=== PATIENT | male | born 1935 | race Two or more races ===

== ENCOUNTER → 2016-12-21 | Outpatient (REF) | payer MEDICARE, BC ==
[~2016-12-21] MED LIST: /TAMS4CA PO; ACET650T12 PO; ALDA25TA2 PO; AUGM875T27 PO; CLOB0.0548 TOP; COLA50CA3 PO; CYCL10TA PO; FLEXERAL PO; FLOM5CAP PO; LEVA500T PO; NADO20TA PO; NADO20TA2 PO; PRIL20CA9 PO; PRIL20TA2 PO; PROS5TAB PO; SPIR25TA2 PO
== END ==
LOC: M SMT 13:16
PROVIDERS: ATTEND Nurse Practitioner Family
DX: N39.0 Urinary tract infection, site not specified (principal)

== ENCOUNTER → 2016-12-28 | Outpatient (CLI) | payer MEDICARE ==
[~2016-12-28] MED LIST changes: -AUGM875T27 PO; +AUGM875T28 PO; +KEFL500C17 PO; +LEVA1TAB2 PO; -LEVA500T PO
--- NOTE | 2016-12-28 21:00 | REP ---
CT ABDOMEN AND PELVIS WITHOUT IV CONTRAST: 12/28/2016. Clinical history: Recurrent UTI. Comparison: 04/02/[address] Instrument [employer] film shows pedicle screws, arch bars and fixation screws into the bilateral iliac crest and sacral ala. The patient has had an ORIF of the left hip intertrochanteric fracture with intramedullary pierce and a threaded femoral nail. Technique. Noncontrast images with coronal and sagittal reconstructions performed, all with orthopedic metal artifact reduction algorithm. CT abdomen: The lung bases were clear. The heart is not enlarged. There is no pericardial thickening or effusion. There is atherosclerotic calcification distal thoracic aorta and abdominal aorta to the bifurcation. No aneurysm. The liver has lobulated contours, but is not enlarged and this is consistent with chronic liver disease. Spleen is not enlarged. It has multiple calcifications from old granulomatous disease. Clips from prior cholecystectomy are noted. Stomach shows no hiatal hernia and is collapsed. Pancreas shows some mild atrophy at body and tail, but no mass, adenopathy or adjacent fluid collection. Adrenal glands grossly intact. Kidneys show exophytic cyst interpolar region posteriorly on the left with some minor stranding perihilar regions. No hydronephrosis, stone or mass. The aorta has atherosclerotic calcification without aneurysm. No periaortic or other retroperitoneal pathologic sized lymphadenopathy. No mesenteric edema or adenopathy. Small bowel loops grossly intact. Colon shows stool and gas throughout without signs of colitis or diverticulitis. There is no perforation or free air in the abdomen and pelvis on any of the CT slices. There is no ventral hernia. Multiple pedicle screws and arch bars are again seen and appearance of the spine is unchanged in alignment with no hardware failure identified. CT pelvis: The bones are demineralized. The sacral ala and SI joints have excessive degenerative changes without acute fracture. There has been an ORIF of the left hip with intramedullary pierce and threaded femoral nail. Extensive heterotopic bone and healing fracture noted. Pubic rami, symphysis pubis were intact. Femoral heads are intact with degenerative changes on the right, with rim osteophytes and some joint space narrowing of both hip joint spaces. The small bowel loops were unremarkable. There was no dilated ureter or ureteral stone. Bladder well filled and without stone or mass. Distal left colonic and sigmoid diverticulosis without diverticulitis. Small bowel loops intact. No ventral or inguinal hernia nor pathologic inguinal adenopathy. Impression: 1. Status post ORIF intertrochanteric fracture of the left hip with threaded femoral nail and intramedullary pierce. 2. Extensive posterior spinal fusion with pedicle screws and arch bars throughout the lower thoracic and entire lumbar spine. 3. No acute fracture identified and there are changes of chronic liver disease with a small lobulated liver contour and no hepatomegaly or splenomegaly. 4. Atherosclerotic calcification of the aorta and branches without aneurysm. Small bowel loops and colon grossly intact. Nothing acute. Signed by Johnny Butler MD 12/29/2016 07:34 P
== END ==
LOC: M RAD 16:45 → EEVIPCON 17:30
PROVIDERS: ATTEND Nurse Practitioner Family
DX: N39.0 Urinary tract infection, site not specified (principal)

== ENCOUNTER → 2017-01-09 | Outpatient (REF) | payer MEDICARE | LOC: M SMT 17:06 | PROVIDERS: ATTEND Urology | DX: N39.0 Urinary tract infection, site not specified (principal) ==

== ENCOUNTER → 2017-01-30 | Outpatient (REF) | payer MEDICARE | LOC: M SMT 16:51 | PROVIDERS: ATTEND Urology | DX: N39.0 Urinary tract infection, site not specified (principal) ==

== ENCOUNTER 2017-02-17 09:54 | Emergency (ER) | payer MEDICARE ==
[~2017-02-17] VITALS: Ht 172.7 cm; Wt 74.1 kg
[~2017-02-17 09:54] MED LIST changes: -KEFL500C17 PO
[2017-02-17] MEDS ORDERED: NADO20TA PO (10:08)
[2017-02-17] MEDS ORDERED: TETANUS/DIPHTHERIA TOX ADSORB ADULT 0.5ML SYR/VIAL (90714) IM ONE (10:15)
[2017-02-17] MEDS ORDERED: KEFL500C17 PO (10:48)
[2017-02-17] MEDS ORDERED: LIDOCAINE 2% MDV 20 ML VIAL As Ordered ONE (10:57)
--- NOTE | 2017-02-17 11:02 | REP ---
Right forearm two views: There is no fracture or dislocation. 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 Impression Essentially negative right forearm except for triangular fibrocartilage calcifications. Signed by Clifton Boudreaux MD 02/17/2017 10:53 A
[2017-02-17 11:40] VITALS: BP 139/92
== END 2017-02-17 11:41 | disposition home or self-care (01) ==
LOC: M ED 09:54 → EDBD 09:54 → M ED 11:41
DX: S51.811A Laceration without foreign body of right forearm, initial encounter (principal); W10.9XXA Fall (on) (from) unspecified stairs and steps, initial encounter; Y92.019 Unspecified place in single-family (private) house as the place of occurrence of the external cause; Y93.01 Activity, walking, marching and hiking; Y99.8 Other external cause status; M21.379 Foot drop, unspecified foot; K74.60 Unspecified cirrhosis of liver; N40.0 Benign prostatic hyperplasia without lower urinary tract symptoms; F17.210 Nicotine dependence, cigarettes, uncomplicated; Z79.899 Other long term (current) drug therapy; Z91.018 Allergy to other foods

== ENCOUNTER → 2017-02-18 | Outpatient (REF) | payer MEDICARE ==
[~2017-02-18] MED LIST changes: +KEFL500C17 PO
== END ==
LOC: M SMT 17:34
PROVIDERS: ATTEND Nurse Practitioner Family
DX: N39.0 Urinary tract infection, site not specified (principal)

== ENCOUNTER 2017-02-26 10:12 | Emergency (ER) | payer MEDICARE ==
[~2017-02-26] VITALS: Ht 172.7 cm; Wt 73.6 kg
[2017-02-26 11:14] VITALS: BP 142/81
== END 2017-02-26 11:20 | disposition home or self-care (01) ==
LOC: M ED 10:12
DX: Z48.02 Encounter for removal of sutures (principal); K70.30 Alcoholic cirrhosis of liver without ascites; N40.0 Benign prostatic hyperplasia without lower urinary tract symptoms; G98.8 Other disorders of nervous system; M43.20 Fusion of spine, site unspecified; M54.9 Dorsalgia, unspecified; Z79.899 Other long term (current) drug therapy; Z91.018 Allergy to other foods

== ENCOUNTER → 2017-03-22 | Outpatient (REF) | payer MEDICARE | LOC: M SMT 16:45 | PROVIDERS: ATTEND Urology | DX: N39.0 Urinary tract infection, site not specified (principal) ==

== ENCOUNTER → 2017-04-23 | Outpatient (REF) | payer MEDICARE | LOC: M SMT 12:43 | PROVIDERS: ATTEND Urology | DX: N39.0 Urinary tract infection, site not specified (principal) ==

== ENCOUNTER → 2017-05-01 | Outpatient (REF) | payer MEDICARE | LOC: M SMT 12:43 | PROVIDERS: ATTEND Urology | DX: N39.0 Urinary tract infection, site not specified (principal) ==

== ENCOUNTER → 2018-01-07 | Outpatient (CLI) | payer MEDICARE ==
[2018-01-07 11:16] LABS: HEMATOCRIT 46.2 % (42.0-52.0); HEMOGLOBIN 15.9 g/dl (13.5-17.5); MEAN CORPUSCULAR HEMOGLOBIN 30.9 pg (27.0-33.0); MEAN CORPUSCULAR HGB CONC 34.4 g/dl (32.0-36.5); MEAN CORPUSCULAR VOLUME 89.9 fl (80.0-96.0); PLATELET COUNT, AUTOMATED 200 10^3/uL (150-450); RED BLOOD COUNT 5.14 10^6/uL (4.30-6.10); RED CELL DISTRIBUTION WIDTH 13.3 % (11.5-14.5); WHITE BLOOD COUNT 9.8 10^3/uL (4.0-10.0)
[2018-01-07 11:22] LABS: INR 0.96; PROTHROMBIN TIME 12.9 SECONDS (12.1-14.4)
[2018-01-07 11:36] LABS: ALBUMIN 3.4 GM/DL (3.2-5.2); ALBUMIN/GLOBULIN RATIO 1.06 (1.00-1.93); ALKALINE PHOSPHATASE 72 U/L (45-117); ALT/SGPT 22 U/L (12-78); ANION GAP 8 MEQ/L (8-16); AST/SGOT 19 U/L (7-37); BILIRUBIN,TOTAL 0.6 MG/DL (0.2-1.0); BLOOD UREA NITROGEN 22 MG/DL (7-18); CALCIUM LEVEL 8.8 MG/DL (8.8-10.2); CARBON DIOXIDE LEVEL 27 MEQ/L (21-32); CHLORIDE LEVEL 105 MEQ/L (98-107); CREATININE FOR GFR 1.61 MG/DL (0.70-1.30); GLOMERULAR FILTRATION RATE 43.7 (>35); GLUCOSE, FASTING 161 MG/DL (70-100); POTASSIUM SERUM 4.8 MEQ/L (3.5-5.1); SODIUM LEVEL 140 MEQ/L (136-145); TOTAL PROTEIN 6.6 GM/DL (6.4-8.2)
[2018-01-07 11:40] LABS: ERYTHROCYTE SEDIMENTATION RATE 3 mm/hr (0-20)
== END ==
LOC: M LAB 10:28
DX: Z01.818 Encounter for other preprocedural examination (principal); M17.11 Unilateral primary osteoarthritis, right knee; R94.31 Abnormal electrocardiogram [ECG] [EKG]
CPT/HCPCS: 71046

== ENCOUNTER 2018-01-20 07:35 | Inpatient (IN) | payer MEDICARE ==
[2018-01-20] MEDS ORDERED: LIDOCAINE 1% MDV 20ML VIAL SQ (07:45)
[2018-01-20] MEDS ORDERED: ceFAZolin 2 GM/D5W 50 ML IV BAG (J0690 PER 500MG) As Ordered (08:36)
[2018-01-20] MEDS: LR 1,000 ML IV ×3 (09:10→13:00)
[2018-01-20] MEDS ORDERED: fentaNYL 100 MCG/2 ML INJECTION (J3010) As Ordered ×2 (09:41→11:17)
[2018-01-20] MEDS ORDERED: MIDAZOLAM INJ 2 MG/2 ML VIAL (J2250) As Ordered (09:41)
[2018-01-20] MEDS: fentaNYL 100 MCG/2 ML INJECTION (J3010) IV (10:19)
[2018-01-20] MEDS: MIDAZOLAM INJ 2 MG/2 ML VIAL (J2250) IV (10:20)
[2018-01-20] MEDS ORDERED: PROPOFOL 200 MG/20 ML VIAL As Ordered ×2 (10:34→11:17)
[2018-01-20] MEDS ORDERED: LIDOCAINE 2% INJ 100 MG/5 ML SDV (FOR ANES.) As Ordered (10:34)
[2018-01-20] MEDS ORDERED: ROCURONIUM BROMIDE 50 MG/5 ML VIAL As Ordered ×2 (10:34→11:17)
[2018-01-20] MEDS ORDERED: dexameTHASONE 4 MG/ML 1ML VIAL (J1100) As Ordered (11:17)
[2018-01-20] MEDS ORDERED: ONDANSETRON 4MG/2ML VIAL (J2405) As Ordered (11:17)
[2018-01-20] MEDS ORDERED: GLYCOPYRROLATE INJ 0.2 MG/ML 2 ML VIAL As Ordered ×3 (11:19→11:33)
[2018-01-20] MEDS: TRANEXAMIC ACID 100 MG/ML 10ML VIAL As Ordered (11:21)
[2018-01-20] MEDS: ceFAZolin 1GM INJ (J0690 PER 500MG) As Ordered (11:21)
[2018-01-20] MEDS: EPINEPHrine INJ 1 MG/ML 1ML AMP As Ordered (11:22)
[2018-01-20] MEDS ORDERED: PHENYLephrine HCL 500 MCG/5 ML (100MCG/ML) SYRINGE (J2370) As Ordered (11:28)
[2018-01-20] MEDS ORDERED: ePHEDrine SULFATE 25 MG/5 ML(5MG/ML) SYRINGE As Ordered (11:28)
[2018-01-20] MEDS ORDERED: NEOSTIGMINE 10 MG/10 ML VIAL (J2710) As Ordered (11:33)
[2018-01-20] MEDS: BUPIVACAINE LIPOSOME/PF 1.3% 20 ML VIAL (13.3MG/ML)(EXPAREL) As Ordered (12:07)
[2018-01-20] MEDS ORDERED: MORPHINE 1MG/ML IN 0.9% NACL 100ML IV BAG As Ordered (12:33)
[2018-01-20] MEDS ORDERED: FLEET ENEMA PR (12:45)
[2018-01-20] MEDS: MORPHINE 1MG/ML IN 0.9% NACL 100ML IV BAG IV (12:55)
[2018-01-20] MEDS ORDERED: fentaNYL 100 MCG/2 ML INJECTION (J3010) IV (13:00)
[2018-01-20] MEDS ORDERED: EPIDURAL/PCA KEYS XX (13:00)
[2018-01-20] MEDS ORDERED: diphenhydrAMINE INJ 50MG/ML VIAL (J1200) IV (13:00)
[2018-01-20] MEDS ORDERED: ONDANSETRON 4MG/2ML VIAL (J2405) IV ×2 (13:00)
[2018-01-20] MEDS ORDERED: HYDROMORPHONE HCL 0.5 MG/ 0.5 ML SYRINGE (J1170 PER 1) IV (13:00)
[2018-01-20] MEDS ORDERED: NALBUPHINE HCL 10 MG/ML AMP (J2300) IV (13:00)
[2018-01-20] MEDS ORDERED: NALOXONE INJ 0.4 MG/1 ML VIAL (J2310) IV (13:00)
[2018-01-20] MEDS ORDERED: PERCOCET 5MG/325MG TAB PO (13:00)
[2018-01-20] MEDS ORDERED: ROPIvacaine 0.5% 30 ML INJECTION (J2795 PER 1MG) (13:52)
[2018-01-20] MEDS ORDERED: dexameTHASONE 10 MG/1 ML VIAL PRES.FREE (J1100) (13:52)
[2018-01-20] MEDS ORDERED: PILL CRUSHER/CUTTER 1 EACH XX (14:15)
[2018-01-20] MEDS: FINASTERIDE 5 MG TAB PO (18:03)
[2018-01-20] MEDS: SPIRONOLACTONE 25 MG TAB PO (18:03)
[2018-01-20] MEDS: NITROFURANTOIN (MACROBID) 100 MG CAP PO (18:03)
[2018-01-20] MEDS: ONDANSETRON 4MG/2ML VIAL (J2405) IV (19:12)
[2018-01-21] MEDS: LR 1,000 ML IV (02:05)
[2018-01-21] MEDS ORDERED: PERCOCET 5MG/325MG TAB PO (06:30)
[2018-01-21 07:04] LABS: BASO # 0.1 10^3/uL (0.0-0.2); BASO % 0.2 % (0.0-1.0); HEMATOCRIT 40.8 % (42.0-52.0); HEMOGLOBIN 13.7 g/dl (13.5-17.5); IMMATURE GRANULOCYTE % 1.5 % (0-3.0); LYMPH # 1.7 10^3/uL (1.5-4.5); MEAN CORPUSCULAR HEMOGLOBIN 31.2 pg (27.0-33.0); MEAN CORPUSCULAR HGB CONC 33.6 g/dl (32.0-36.5); MEAN CORPUSCULAR VOLUME 92.9 fl (80.0-96.0); MONO % 10.2 % (0.0-5.0); NEUTROPHILS # 16.7 10^3/uL (1.8-7.7); NEUTROPHILS % 80.1 % (36.0-66.0); PLATELET COUNT, AUTOMATED 202 10^3/uL (150-450); RED BLOOD COUNT 4.39 10^6/uL (4.30-6.10); RED CELL DISTRIBUTION WIDTH 13.5 % (11.5-14.5); WHITE BLOOD COUNT 20.9 10^3/uL (4.0-10.0)
[2018-01-21 07:28] LABS: MONO # 2.1 10^3/uL (0.0-0.8); POSITIVE DIFF POS FLAG
[2018-01-21 07:33] LABS: ALBUMIN 2.7 GM/DL (3.2-5.2); ALBUMIN/GLOBULIN RATIO 0.84 (1.00-1.93); ALKALINE PHOSPHATASE 59 U/L (45-117); ALT/SGPT 16 U/L (12-78); ANION GAP 8 MEQ/L (8-16); AST/SGOT 32 U/L (7-37); BILIRUBIN,TOTAL 0.7 MG/DL (0.2-1.0); BLOOD UREA NITROGEN 25 MG/DL (7-18); CALCIUM LEVEL 8.4 MG/DL (8.8-10.2); CARBON DIOXIDE LEVEL 24 MEQ/L (21-32); CHLORIDE LEVEL 105 MEQ/L (98-107); GLOMERULAR FILTRATION RATE 47.5 (>35); GLUCOSE, FASTING 130 MG/DL (70-100); MAGNESIUM LEVEL 1.8 MG/DL (1.8-2.4); SODIUM LEVEL 137 MEQ/L (136-145); TOTAL PROTEIN 5.9 GM/DL (6.4-8.2)
[2018-01-21 07:35] LABS: POTASSIUM SERUM 5.5 MEQ/L (3.5-5.1)
[2018-01-21] MEDS: OMEPRAZOLE 20 MG CAP PO (08:34)
[2018-01-21] MEDS: SOD POLYSTYRENE SULFONATE SUSP 15 GM/60 ML UD PO (08:34)
[2018-01-21] MEDS: ONDANSETRON 4 MG TAB (S0181) PO ×3 (08:36→23:11)
[2018-01-21] MEDS: TAMSULOSIN 0.4 MG CAP PO (08:36)
[2018-01-21] MEDS: NADOLOL 20MG TABLET PO (08:36)
[2018-01-21] MEDS: FINASTERIDE 5 MG TAB PO (08:37)
[2018-01-21] MEDS: NITROFURANTOIN (MACROBID) 100 MG CAP PO (08:37)
[2018-01-21] MEDS: SENOKOT S TAB PO ×2 (08:37→22:38)
[2018-01-21] MEDS: MOM 30ML SUSPENSION UDC PO (08:39)
[2018-01-21] MEDS: MIRALAX *UNIT DOSE* 17GM PACKET PO (08:39)
[2018-01-21] MEDS: PERCOCET 5MG/325MG TAB PO ×2 (08:41→14:06)
[2018-01-21 13:21] LABS: ANION GAP 5 MEQ/L (8-16); BLOOD UREA NITROGEN 26 MG/DL (7-18); CALCIUM LEVEL 8.3 MG/DL (8.8-10.2); CARBON DIOXIDE LEVEL 27 MEQ/L (21-32); CHLORIDE LEVEL 103 MEQ/L (98-107); CREATININE FOR GFR 1.52 MG/DL (0.70-1.30); GLOMERULAR FILTRATION RATE 46.7 (>35); GLUCOSE, FASTING 137 MG/DL (70-100); POTASSIUM SERUM 4.6 MEQ/L (3.5-5.1); SODIUM LEVEL 135 MEQ/L (136-145)
[2018-01-21] MEDS: RIVAROXABAN 10 MG TAB (XARELTO) PO (17:29)
[2018-01-21] MEDS: ACETAMINOPHEN TAB 650MG DOSE (2X325MG) PO ×2 (18:30→22:38)
[2018-01-22 05:55] LABS: BASO % 0.3 % (0.0-1.0); EOS # 0.1 10^3/uL (0.0-0.50); HEMATOCRIT 38.5 % (42.0-52.0); HEMOGLOBIN 12.9 g/dl (13.5-17.5); IMMATURE GRANULOCYTE % 1.6 % (0-3.0); LYMPH # 1.6 10^3/uL (1.5-4.5); MEAN CORPUSCULAR HEMOGLOBIN 30.8 pg (27.0-33.0); MEAN CORPUSCULAR HGB CONC 33.5 g/dl (32.0-36.5); MEAN CORPUSCULAR VOLUME 91.9 fl (80.0-96.0); MONO # 1.7 10^3/uL (0.0-0.8); MONO % 12.6 % (0.0-5.0); NEUTROPHILS # 9.7 10^3/uL (1.8-7.7); NEUTROPHILS % 72.5 % (36.0-66.0); PLATELET COUNT, AUTOMATED 174 10^3/uL (150-450); RED BLOOD COUNT 4.19 10^6/uL (4.30-6.10); RED CELL DISTRIBUTION WIDTH 13.3 % (11.5-14.5); WHITE BLOOD COUNT 13.4 10^3/uL (4.0-10.0)
[2018-01-22 06:22] LABS: ALBUMIN 2.7 GM/DL (3.2-5.2); ALBUMIN/GLOBULIN RATIO 0.93 (1.00-1.93); ALKALINE PHOSPHATASE 63 U/L (45-117); ALT/SGPT 14 U/L (12-78); ANION GAP 6 MEQ/L (8-16); AST/SGOT 20 U/L (7-37); BILIRUBIN,TOTAL 0.7 MG/DL (0.2-1.0); BLOOD UREA NITROGEN 25 MG/DL (7-18); CALCIUM LEVEL 8.3 MG/DL (8.8-10.2); CARBON DIOXIDE LEVEL 29 MEQ/L (21-32); CHLORIDE LEVEL 105 MEQ/L (98-107); CREATININE FOR GFR 1.44 MG/DL (0.70-1.30); GLOMERULAR FILTRATION RATE 49.8 (>35); GLUCOSE, FASTING 125 MG/DL (70-100); MAGNESIUM LEVEL 1.6 MG/DL (1.8-2.4); SODIUM LEVEL 140 MEQ/L (136-145); TOTAL PROTEIN 5.6 GM/DL (6.4-8.2)
[2018-01-22] MEDS: NADOLOL 20MG TABLET PO (09:00)
[2018-01-22] MEDS: ONDANSETRON 4 MG TAB (S0181) PO (09:04)
[2018-01-22] MEDS: OMEPRAZOLE 20 MG CAP PO (09:04)
[2018-01-22] MEDS: NITROFURANTOIN (MACROBID) 100 MG CAP PO (09:05)
[2018-01-22] MEDS: traMADol 50 MG TAB PO ×2 (09:05→14:58)
[2018-01-22] MEDS: SENOKOT S TAB PO ×2 (09:05→20:50)
[2018-01-22] MEDS: TAMSULOSIN 0.4 MG CAP PO (09:06)
[2018-01-22] MEDS: MOM 30ML SUSPENSION UDC PO (09:06)
[2018-01-22] MEDS: SPIRONOLACTONE 25 MG TAB PO (09:06)
[2018-01-22] MEDS: MIRALAX *UNIT DOSE* 17GM PACKET PO (09:06)
[2018-01-22] MEDS: FINASTERIDE 5 MG TAB PO (09:06)
[2018-01-22] MEDS: LACTULOSE 20 GM/30 ML SYRUP UD PO ×3 (12:12→20:50)
[2018-01-22] MEDS: RIVAROXABAN 10 MG TAB (XARELTO) PO (18:06)
[2018-01-22] MEDS: ACETAMINOPHEN 500 MG TAB PO (20:51)
[2018-01-23] MEDS: LACTULOSE 20 GM/30 ML SYRUP UD PO (04:41)
[2018-01-23 05:48] LABS: BASO % 0.3 % (0.0-1.0); EOS # 0.1 10^3/uL (0.0-0.50); EOS % 0.6 % (0.0-3.0); HEMATOCRIT 35.5 % (42.0-52.0); HEMOGLOBIN 12.1 g/dl (13.5-17.5); IMMATURE GRANULOCYTE % 1.6 % (0-3.0); LYMPH # 1.5 10^3/uL (1.5-4.5); MEAN CORPUSCULAR HGB CONC 34.1 g/dl (32.0-36.5); MONO # 1.6 10^3/uL (0.0-0.8); MONO % 12.5 % (0.0-5.0); NEUTROPHILS # 9.7 10^3/uL (1.8-7.7); PLATELET COUNT, AUTOMATED 168 10^3/uL (150-450); RED CELL DISTRIBUTION WIDTH 13.4 % (11.5-14.5); WHITE BLOOD COUNT 13.1 10^3/uL (4.0-10.0)
[2018-01-23 06:06] LABS: ALBUMIN 2.5 GM/DL (3.2-5.2); ALBUMIN/GLOBULIN RATIO 0.78 (1.00-1.93); ALKALINE PHOSPHATASE 74 U/L (45-117); ALT/SGPT 20 U/L (12-78); ANION GAP 3 MEQ/L (8-16); AST/SGOT 23 U/L (7-37); BILIRUBIN,TOTAL 0.9 MG/DL (0.2-1.0); BLOOD UREA NITROGEN 22 MG/DL (7-18); CALCIUM LEVEL 8.2 MG/DL (8.8-10.2); CARBON DIOXIDE LEVEL 31 MEQ/L (21-32); CHLORIDE LEVEL 104 MEQ/L (98-107); CREATININE FOR GFR 1.31 MG/DL (0.70-1.30); GLOMERULAR FILTRATION RATE 55.5 (>35); GLUCOSE, FASTING 130 MG/DL (70-100); POTASSIUM SERUM 5.1 MEQ/L (3.5-5.1); SODIUM LEVEL 138 MEQ/L (136-145); TOTAL PROTEIN 5.7 GM/DL (6.4-8.2)
[2018-01-23] MEDS ORDERED: SENOKOT S TAB PO (08:15)
[2018-01-23] MEDS: NITROFURANTOIN (MACROBID) 100 MG CAP PO (09:00)
[2018-01-23] MEDS: MIRALAX *UNIT DOSE* 17GM PACKET PO (09:00)
[2018-01-23] MEDS: FINASTERIDE 5 MG TAB PO (09:00)
[2018-01-23] MEDS: TAMSULOSIN 0.4 MG CAP PO (09:12)
[2018-01-23] MEDS: SPIRONOLACTONE 25 MG TAB PO (09:13)
[2018-01-23] MEDS: NADOLOL 20MG TABLET PO (09:14)
[2018-01-23] MEDS: OMEPRAZOLE 20 MG CAP PO (09:15)
[2018-01-23] MEDS: traMADol 50 MG TAB PO ×2 (09:21→17:59)
[2018-01-23] MEDS: RIVAROXABAN 10 MG TAB (XARELTO) PO (17:59)
[2018-01-24 06:05] LABS: BASO # 0.1 10^3/uL (0.0-0.2); BASO % 0.5 % (0.0-1.0); EOS # 0.2 10^3/uL (0.0-0.50); EOS % 2.1 % (0.0-3.0); HEMATOCRIT 35.1 % (42.0-52.0); HEMOGLOBIN 11.9 g/dl (13.5-17.5); IMMATURE GRANULOCYTE % 2.8 % (0-3.0); LYMPH # 1.7 10^3/uL (1.5-4.5); LYMPH % 15.3 % (24.0-44.0); MEAN CORPUSCULAR HEMOGLOBIN 30.8 pg (27.0-33.0); MEAN CORPUSCULAR HGB CONC 33.9 g/dl (32.0-36.5); MEAN CORPUSCULAR VOLUME 90.9 fl (80.0-96.0); MONO # 1.3 10^3/uL (0.0-0.8); MONO % 11.7 % (0.0-5.0); NEUTROPHILS # 7.5 10^3/uL (1.8-7.7); NEUTROPHILS % 67.6 % (36.0-66.0); PLATELET COUNT, AUTOMATED 186 10^3/uL (150-450); RED BLOOD COUNT 3.86 10^6/uL (4.30-6.10); RED CELL DISTRIBUTION WIDTH 13.2 % (11.5-14.5); WHITE BLOOD COUNT 11.2 10^3/uL (4.0-10.0)
[2018-01-24 06:23] LABS: ALBUMIN 2.3 GM/DL (3.2-5.2); ALBUMIN/GLOBULIN RATIO 0.72 (1.00-1.93); ALKALINE PHOSPHATASE 75 U/L (45-117); ALT/SGPT 15 U/L (12-78); ANION GAP 6 MEQ/L (8-16); AST/SGOT 17 U/L (7-37); BILIRUBIN,TOTAL 0.7 MG/DL (0.2-1.0); BLOOD UREA NITROGEN 23 MG/DL (7-18); CALCIUM LEVEL 8.2 MG/DL (8.8-10.2); CARBON DIOXIDE LEVEL 29 MEQ/L (21-32); CHLORIDE LEVEL 101 MEQ/L (98-107); CREATININE FOR GFR 1.23 MG/DL (0.70-1.30); GLOMERULAR FILTRATION RATE 59.7 (>35); GLUCOSE, FASTING 118 MG/DL (70-100); MAGNESIUM LEVEL 1.7 MG/DL (1.8-2.4); POTASSIUM SERUM 4.7 MEQ/L (3.5-5.1); SODIUM LEVEL 136 MEQ/L (136-145); TOTAL PROTEIN 5.5 GM/DL (6.4-8.2)
[2018-01-24] MEDS: NADOLOL 20MG TABLET PO (09:00)
[2018-01-24] MEDS: FINASTERIDE 5 MG TAB PO (10:32)
[2018-01-24] MEDS: traMADol 50 MG TAB PO (10:32)
[2018-01-24] MEDS: NITROFURANTOIN (MACROBID) 100 MG CAP PO (10:32)
[2018-01-24] MEDS: SPIRONOLACTONE 25 MG TAB PO (10:33)
[2018-01-24] MEDS: OMEPRAZOLE 20 MG CAP PO (10:33)
[2018-01-24] MEDS: MIRALAX *UNIT DOSE* 17GM PACKET PO (10:34)
[2018-01-24] MEDS: TAMSULOSIN 0.4 MG CAP PO (10:34)
== END 2018-01-24 11:45 | DRG 470 ==
LOC: M OR 07:35 → M MS5PR 14:45
PROC: 0SRC0J9 Replacement of Right Knee Joint with Synthetic Substitute, Cemented, Open Approach (ICD-10-PCS; principal; 2018-01-20 10:46)
DX: M17.11 Unilateral primary osteoarthritis, right knee (principal); N40.1 Benign prostatic hyperplasia with lower urinary tract symptoms; K21.9 Gastro-esophageal reflux disease without esophagitis; R26.89 Other abnormalities of gait and mobility; R33.9 Retention of urine, unspecified; K59.00 Constipation, unspecified; E87.5 Hyperkalemia; R00.1 Bradycardia, unspecified; Z79.899 Other long term (current) drug therapy; Z90.49 Acquired absence of other specified parts of digestive tract; Z98.1 Arthrodesis status; Z87.891 Personal history of nicotine dependence; Z91.018 Allergy to other foods

== ENCOUNTER → 2018-01-27 | Outpatient (REF) ==
[2018-01-27 08:47] LABS: ANION GAP 10 MEQ/L (8-16); BLOOD UREA NITROGEN 24 MG/DL (7-18); CARBON DIOXIDE LEVEL 25 MEQ/L (21-32); CHLORIDE LEVEL 105 MEQ/L (98-107); GLUCOSE, FASTING 147 MG/DL (70-100); POTASSIUM SERUM 5.1 MEQ/L (3.5-5.1); SODIUM LEVEL 140 MEQ/L (136-145)
== END ==
LOC: SKLAB4 09:38
DX: I10 Essential (primary) hypertension (principal); N40.0 Benign prostatic hyperplasia without lower urinary tract symptoms

== ENCOUNTER → 2018-01-27 | Outpatient (REF) | payer MEDICARE ==
[2018-01-27 12:58] LABS: HEMATOCRIT 36.8 % (42.0-52.0); HEMOGLOBIN 12.5 g/dl (13.5-17.5); MEAN CORPUSCULAR HEMOGLOBIN 31.2 pg (27.0-33.0); MEAN CORPUSCULAR VOLUME 91.8 fl (80.0-96.0); PLATELET COUNT, AUTOMATED 290 10^3/uL (150-450); RED BLOOD COUNT 4.01 10^6/uL (4.30-6.10); RED CELL DISTRIBUTION WIDTH 13.2 % (11.5-14.5); WHITE BLOOD COUNT 11.6 10^3/uL (4.0-10.0)
[2018-01-27 13:22] LABS: C REACTIVE PROTEIN QUANTITATIV 4.82 MG/DL (0.00-0.30)
[2018-01-27 14:01] LABS: ERYTHROCYTE SEDIMENTATION RATE 54 mm/hr (0-20)
== END ==
LOC: SKLAB2 10:41
DX: M79.9 Soft tissue disorder, unspecified (principal); Z98.890 Other specified postprocedural states
CPT/HCPCS: 73564

== ENCOUNTER → 2018-01-28 | Outpatient (REF) | payer MEDICARE | LOC: M LAB REF 13:06 | DX: Z47.1 Aftercare following joint replacement surgery (principal) | CPT/HCPCS: 87186 ==

== ENCOUNTER → 2018-01-29 | Outpatient (REF) ==
[2018-01-29 07:59] LABS: HEMATOCRIT 37.1 % (42.0-52.0); HEMOGLOBIN 12.6 g/dl (13.5-17.5); MEAN CORPUSCULAR HEMOGLOBIN 30.7 pg (27.0-33.0); MEAN CORPUSCULAR VOLUME 90.5 fl (80.0-96.0); PLATELET COUNT, AUTOMATED 340 10^3/uL (150-450); RED CELL DISTRIBUTION WIDTH 13.2 % (11.5-14.5); WHITE BLOOD COUNT 13.7 10^3/uL (4.0-10.0)
[2018-01-29 09:10] LABS: ERYTHROCYTE SEDIMENTATION RATE 44 mm/hr (0-20)
== END ==
LOC: SKLAB4 06:39
DX: D64.9 Anemia, unspecified (principal)

== ENCOUNTER → 2018-02-03 | Outpatient (REF) ==
[2018-02-03 08:08] LABS: ANION GAP 7 MEQ/L (8-16); BLOOD UREA NITROGEN 20 MG/DL (7-18); CALCIUM LEVEL 8.5 MG/DL (8.8-10.2); CARBON DIOXIDE LEVEL 27 MEQ/L (21-32); CHLORIDE LEVEL 106 MEQ/L (98-107); CREATININE FOR GFR 1.54 MG/DL (0.70-1.30); GLUCOSE, FASTING 113 MG/DL (70-100); SODIUM LEVEL 140 MEQ/L (136-145)
== END ==
LOC: SKLAB4 08:31
DX: E87.6 Hypokalemia (principal)

== ENCOUNTER → 2018-02-05 | Outpatient (REF) ==
[2018-02-05 07:06] LABS: HEMATOCRIT 33.8 % (42.0-52.0); HEMOGLOBIN 11.2 g/dl (13.5-17.5); MEAN CORPUSCULAR HEMOGLOBIN 30.6 pg (27.0-33.0); MEAN CORPUSCULAR HGB CONC 33.1 g/dl (32.0-36.5); MEAN CORPUSCULAR VOLUME 92.3 fl (80.0-96.0); PLATELET COUNT, AUTOMATED 310 10^3/uL (150-450); RED BLOOD COUNT 3.66 10^6/uL (4.30-6.10); RED CELL DISTRIBUTION WIDTH 14.2 % (11.5-14.5); WHITE BLOOD COUNT 11.8 10^3/uL (4.0-10.0)
[2018-02-05 07:47] LABS: ERYTHROCYTE SEDIMENTATION RATE 35 mm/hr (0-20)
== END ==
LOC: SKLAB4 10:14
DX: Z13.9 Encounter for screening, unspecified (principal)

== ENCOUNTER → 2018-02-13 | Outpatient (REF) ==
[2018-02-13 12:00] LABS: BASO # 0.1 10^3/uL (0.0-0.2); BASO % 0.6 % (0.0-1.0); EOS # 0.2 10^3/uL (0.0-0.50); EOS % 2.3 % (0.0-3.0); HEMATOCRIT 33.2 % (42.0-52.0); HEMOGLOBIN 10.9 g/dl (13.5-17.5); LYMPH # 1.6 10^3/uL (1.5-4.5); LYMPH % 16.4 % (24.0-44.0); MEAN CORPUSCULAR HEMOGLOBIN 30.9 pg (27.0-33.0); MEAN CORPUSCULAR HGB CONC 32.8 g/dl (32.0-36.5); MEAN CORPUSCULAR VOLUME 94.1 fl (80.0-96.0); MONO # 0.9 10^3/uL (0.0-0.8); MONO % 9.7 % (0.0-5.0); NEUTROPHILS # 6.6 10^3/uL (1.8-7.7); PLATELET COUNT, AUTOMATED 209 10^3/uL (150-450); RED BLOOD COUNT 3.53 10^6/uL (4.30-6.10); RED CELL DISTRIBUTION WIDTH 14.3 % (11.5-14.5); WHITE BLOOD COUNT 9.5 10^3/uL (4.0-10.0)
[2018-02-13 13:20] LABS: C REACTIVE PROTEIN QUANTITATIV 0.43 MG/DL (0.00-0.30)
[2018-02-13 14:45] LABS: ERYTHROCYTE SEDIMENTATION RATE 21 mm/hr (0-20)
== END ==
LOC: SKLAB4 09:00
DX: M25.461 Effusion, right knee (principal); Z96.651 Presence of right artificial knee joint

== ENCOUNTER → 2018-02-18 | Outpatient (REF) ==
[2018-02-18 08:36] LABS: ANION GAP 7 MEQ/L (8-16); BLOOD UREA NITROGEN 15 MG/DL (7-18); CALCIUM LEVEL 8.2 MG/DL (8.8-10.2); CARBON DIOXIDE LEVEL 27 MEQ/L (21-32); CHLORIDE LEVEL 107 MEQ/L (98-107); GLOMERULAR FILTRATION RATE > 60.0 (>35); GLUCOSE, FASTING 100 MG/DL (70-100); POTASSIUM SERUM 4.4 MEQ/L (3.5-5.1); SODIUM LEVEL 141 MEQ/L (136-145)
== END ==
LOC: SKLAB4 10:38
DX: I50.9 Heart failure, unspecified (principal)

== ENCOUNTER → 2018-03-31 | Outpatient (REF) | payer MEDICARE | LOC: M SMT 13:37 | DX: N39.0 Urinary tract infection, site not specified (principal) | CPT/HCPCS: 87086 ==

== ENCOUNTER → 2018-07-02 | Outpatient (REF) | payer MEDICARE ==
[~2018-07-02] MED LIST changes: +ACET1TAB55 PO; +FLOM0.4C39 PO; -FLOM5CAP PO; +MACR25CA2 PO; +ONDA4SOL PO; +PERC5TAB12 PO; +SPIR-10 PO; -SPIR25TA2 PO; +XARE10TA PO
[2018-07-02 13:28] LABS: APPEARANCE, URINE HAZY (CLEAR); BACTERIA, URINE AUTO 3+ (NEGATIVE); BILIRUBIN, URINE AUTO NEGATIVE (NEGATIVE); BLOOD, URINE BLOOD NEGATIVE (NEGATIVE); COLOR, URINE YELLOW (YELLOW); GLUCOSE, URINE (UA) AUTO NEGATIVE (NEGATIVE); KETONE, URINE AUTO NEGATIVE (NEGATIVE); LEUKOCYTE ESTERASE, URINE AUTO 3+ (NEGATIVE); MUCUS, URINE SMALL (NEGATIVE); NITRITE, URINE AUTO POSITIVE (NEGATIVE); PROTEIN, URINE AUTO NEGATIVE (NEGATIVE); RBC, URINE AUTO 5 /HPF (0-3); SPECIFIC GRAVITY URINE AUTO 1.012 (1.002-1.035); SQUAMOUS EPITHELIAL CELL UR AU 1 /HPF (0-6); UROBILINOGEN, URINE AUTO 0.2 mg/dL (0.0-2.0); WBC, URINE AUTO 121 /HPF (0-3)
== END ==
LOC: M SMT 12:54
PROVIDERS: ATTEND Urology
DX: N39.0 Urinary tract infection, site not specified (principal)

== ENCOUNTER → 2018-07-22 | Outpatient (REF) | payer MEDICARE | LOC: M SMT 17:17 | PROVIDERS: ATTEND Urology | DX: N39.0 Urinary tract infection, site not specified (principal) ==